=== PATIENT | male | born 1955 | race American Indian/Alaskan Native ===

== ENCOUNTER 2020-11-09 12:06 | Observation (INO) | payer MEDICAID ==
--- NOTE | 2020-11-09 15:00 | XRay Report ---
CHEST 2 VIEWS INDICATION / CLINICAL INFORMATION: Chest Pain. COMPARISON: None available. FINDINGS: SUPPORT DEVICES: None. HEART / MEDIASTINUM: No significant abnormality. LUNGS / PLEURA: No significant pulmonary or pleural abnormality. No pneumothorax. ADDITIONAL FINDINGS: No significant additional findings. IMPRESSION: 1. No acute findings. Signer Name: Greg De Jesus MD Signed: 11/09/2020 2:55 PM Workstation Name: [id number]
[2020-11-09 15:21] LABS: Basophils % (Auto) 0.9 % (0.0-1.8); Eosinophils # (Auto) 0.1 K/mm3 (0.0-0.4); Eosinophils % (Auto) 1.9 % (0.0-4.3); Hematocrit 42.8 % (35.5-45.6); Hemoglobin 14.7 gm/dl (11.8-15.2); Lymphocytes % (Auto) 41.3 % (13.4-35.0); Mean Corpuscular HGB Conc 34 % (32-34); Mean Corpuscular Volume 87 fl (84-94); Monocytes # (Auto) 0.3 K/mm3 (0.0-0.8); Monocytes % (Auto) 7.2 % (0.0-7.3); Platelet Count 221 K/mm3 (140-440); Red Blood Count 4.94 M/mm3 (3.65-5.03); Red Cell Distribution Width 13.8 % (13.2-15.2)
[2020-11-09 15:28] LABS: INR 0.96 (0.87-1.13); Partial Thromboplastin Time 24.1 Sec. (24.2-36.6)
[2020-11-09 15:35] LABS: Alanine Aminotransferase 31 units/L (7-56); BUN/Creatinine Ratio 11; Blood Urea Nitrogen 10 mg/dL (9-20); Calcium 10.1 mg/dL (8.4-10.2); Hemolysis Index 6
[2020-11-09] MEDS ORDERED: ASPIRIN 81 MG TAB CHEW PO ONE (16:38)
--- NOTE | 2020-11-09 16:38 | Emergency Department Report ---
ED Chest Pain HPI - General Chief Complaint: Chest Pain Stated Complaint: CHEST PAIN Time Seen by Provider: 11/09/20 16:22 Source: patient Mode of arrival: Ambulatory Limitations: No Limitations - History of Present Illness Initial Comments: 65-year-old with history of hypertension mental retardation presents complaining of intermittent chest pain since last night. He states that he has been experiencing intermittent episodes of mid substernal chest pain which he describes as pressure-like. It lasts for a few minutes and then resolves spontaneously. He states that when he does have the pain it radiates to his right arm and shoulder. He also has had a mild cough for the past 2 days. He takes aspirin 81 mg but has no cardiac history. He is vaccinated against the novel coronavirus. He has not tried anything for his symptoms. He has not ex perienced this before. He denies any associated headache, vision change, fever, shortness of breath, abdominal pain, nausea/vomiting, palpitation, syncope, or any other complaints. The patient's sister was at the bedside and helped provide the history. - Related Data Home Medications Medication Instructions Recorded Confirmed Last Taken Aspirin [Aspirin BABY CHEW TAB] 81 mg PO QDAY 11/09/20 11/09/20 Unknown Losartan [Cozaar] 50 mg PO QDAY 11/09/20 11/09/20 Unknown Metoprolol [Lopressor] 25 mg PO BID 11/09/20 11/09/20 Unknown Multivit,Calc,Min/FA/K1/Lycop 1 each PO QDAY 11/09/20 11/09/20 Unknown [One-A-Day Men's Complete Tab] Simvastatin 20 mg PO QHS 11/09/20 11/09/20 Unknown Sucralfate [Carafate] 1 gm PO ACHS 11/09/20 11/09/20 Unknown Allergies Allergy/AdvReac Type Severity Reaction Status Date / Time No Known Allergies Allergy Unverified 11/09/20 12:17 Heart Score - HEART Score History: Highly suspicious EKG: Non-specific Age: 45-65 Risk factors: 1-2 risk factors Troponin: < normal limit HEART Score: 5 - EKG Read Time Time EKG Completed: 12:24 EKG Read Time: 12:32 ED Review of Systems ROS: Stated complaint: CHEST PAIN Other details as noted in HPI Constitutional: denies: chills, fever Eyes: denies: eye pain, vision change ENT: denies: throat pain, congestion Respiratory: cough. denies: shortness of breath Cardiovascular: chest pain. denies: palpitations, syncope Gastrointestinal: denies: abdominal pain, nausea, vomiting Genitourinary: denies: dysuria, frequency Musculoskeletal: denies: back pain, joint swelling Skin: denies: rash Neurological: denies: headache, weakness, numbness ED Past Medical Hx - Past Medical History Previous Medical History?: Yes Hx Hypertension: Yes Additional medical history: high chol; mentally challenged - Surgical History Past Surgical History?: No - Medications Home Medications: Home Medications Medication Instructions Recorded Confirmed Last Taken Type Aspirin [Aspirin BABY CHEW TAB] 81 mg PO QDAY 11/09/20 11/09/20 Unknown History Losartan [Cozaar] 50 mg PO QDAY 11/09/20 11/09/20 Unknown History Metoprolol [Lopressor] 25 mg PO BID 11/09/20 11/09/20 Unknown History Multivit,Calc,Min/FA/K1/Lycop 1 each PO QDAY 11/09/20 11/09/20 Unknown History [One-A-Day Men's Complete Tab] Simvastatin 20 mg PO QHS 11/09/20 11/09/20 Unknown History Sucralfate [Carafate] 1 gm PO ACHS 11/09/20 11/09/20 Unknown History ED Physical Exam - General Limitations: No Limitations - Other Other exam information: GENERAL: Well developed and well nourished. No acute distress HEENT: Normocephalic. No obvious signs of trauma. Moist mucous membranes. EYES: Extraocular movements are intact. Pupils are equal round and reactive to light bilaterally NECK: Supple. Trachea is midline. LUNGS: Nonlabored breathing. Equal chest rise bilaterally. Clear to auscultation bilaterally. HEART/CARDIOVASCULAR: Regular rate and rhythm. No murmurs or rubs. VASCULAR: Cap refill < 2 seconds ABDOMEN: Abdomen is soft and nondistended. There is no significant tenderness, guarding or rebound. SKIN: Skin is warm and dry NEURO: Patient is awake, alert, and oriented. flue cleaner II-XII grossly intact. No focal deficits. Normal motor and sensory exam throughout. MUSCULOSKELETAL: No obvious deformities. No significant tenderness. ED Course Vital Signs 11/09/20 11/09/20 11/09/20 12:19 16:34 16:46 Temperature 99.0 F Pulse Rate 65 77 72 Respiratory 16 15 15 Rate Blood Pressure 167/80 163/87 O2 Sat by Pulse 99 99 100 Oximetry 11/09/20 17:30 Temperature Pulse Rate 64 Respiratory 14 Rate Blood Pressure 154/84 O2 Sat by Pulse 99 Oximetry MARIBELL score - Maribell Score Age > 65: (0) No Aspirin use within the Past 7 Days: (1) Yes 3 or more CAD Risk Factors: (0) No 2 or more Angina events in past 24 hrs: (1) Yes Known CAD with more than 50% Stenosis: (0) No Elevated Cardiac Markers: (0) No ST Deviation Greater than 0.5mm: (0) No MARIBELL Score: 2 ED Medical Decision Making - Lab Data Result diagrams: 11/09/20 14:58 11/09/20 14:58 Lab Results 11/09/20 11/09/20 11/09/20 Range/Units 14:58 14:58 14:58 WBC 4.8 (4.5-11.0) K/mm3 RBC 4.94 (3.65-5.03) M/mm3 Hgb 14.7 (11.8-15.2) gm/dl Hct 42.8 (35.5-45.6) % MCV 87 (84-94) fl MCH 30 (28-32) pg MCHC 34 (32-34) % RDW 13.8 (13.2-15.2) % Plt Count 221 (140-440) K/mm3 Lymph % (Auto) 41.3 H (13.4-35.0) % [place] % (Auto) 7.2 (0.0-7.3) % Eos % (Auto) 1.9 (0.0-4.3) % Baso % (Auto) 0.9 (0.0-1.8) % Lymph # (Auto) 2.0 (1.2-5.4) K/mm3 [place] # (Auto) 0.3 (0.0-0.8) K/mm3 Eos # (Auto) 0.1 (0.0-0.4) K/mm3 Baso # (Auto) 0.0 (0.0-0.1) K/mm3 Seg Neutrophils % 48.7 (40.0-70.0) % Seg Neutrophils # 2.3 (1.8-7.7) K/mm3 PT 13.3 (12.2-14.9) Sec. INR 0.96 (0.87-1.13) APTT 24.1 L (24.2-36.6) Sec. Sodium 143 (137-145) mmol/L Potassium 4.8 (3.6-5.0) mmol/L Chloride 103.8 (98-107) mmol/L Carbon Dioxide 28 (22-30) mmol/L Anion Gap 16 mmol/L BUN 10 (9-20) mg/dL Creatinine 0.9 (0.8-1.3) mg/dL Estimated GFR > 60 ml/min BUN/Creatinine Ratio 11 % Glucose 108 H (75-100) mg/dL Calcium 10.1 (8.4-10.2) mg/dL Total Bilirubin 0.40 (0.1-1.2) mg/dL AST 26 (5-40) units/L ALT 31 (7-56) units/L Alkaline Phosphatase 98 (35-129) units/L Troponin T < 0.010 (0.00-0.029) ng/mL Total Protein 8.6 H (6.3-8.2) g/dL Albumin 5.0 (3.9-5) g/dL Albumin/Globulin Ratio 1.4 % Lipase 69 H (13-60) units/L - EKG Data -: EKG Interpreted by Wy - EKG Data 11/09/20 18:55 Normal sinus rhythm. Normal axis. Intraventricular conduction delay. Otherwise normal intervals. No ectopy. No significant ST segment or T wave abnormalities. - Radiology Data CHEST 2 VIEWS INDICATION / CLINICAL INFORMATION: Chest Pain. COMPARISON: None available. FINDINGS: SUPPORT DEVICES: None. HEART / MEDIASTINUM: No significant abnormality. LUNGS / PLEURA: No significant pulmonary or pleural abnormality. No pneumothorax. ADDITIONAL FINDINGS: No significant additional findings. IMPRESSION: 1. No acute findings. Signer Name: Greg De Jesus MD Signed: 11/09/2020 1:55 PM Workstation Name: [id number] - Medical Decision Making 65-year-old male with history of hypertension, hyperlipidemia, and mental retardation presenting with intermittent mid substernal chest pain radiating to the right shoulder since last night. He also has mild cough. No cardiac history. He is vaccinated against the coronavirus. He is afebrile and with normal vital signs with the exception of elevated blood pressure. The patient's heart score is 5. Labs were drawn in triage and there is no significant leukocytosis or anemia. There are no significant electrolyte abnormalities and the patient's kidney function is normal. His initial troponin value is negative. Chest x-ray is negative. At this time he is currently chest pain- free. I discussed with the patient and his sister the fact that given the patient's age and risk factors and the nature of his symptoms which suggest a cardiac etiology, my recommendation at this point would be for admission to the hospital for trending of cardiac enzymes to determine whether there is an acute coronary syndrome. Both the patient and his sister expressed understanding and agreement with the plan for admission. The patient was administered aspirin. I spoke with Dr. Joshua regarding the case and he accepts the patient for admission and will assume care. Critical care attestation.: If time is entered above; I have spent that time in minutes in the direct care of this critically ill patient, excluding procedure time. ED Disposition Clinical Impression: Angina at rest Disposition: DC-09 OP ADMIT IP TO THIS HOSP Is pt being admited?: Yes Condition: Stable
[2020-11-09] MEDS ORDERED: SODIUM CHLORIDE 0.9% 1000 ML 1,000 ML IV SCH (23:45)
[2020-11-09] MEDS ORDERED: HYDROmorphone 1 MG/1 ML INJ IV PRN (23:46)
[2020-11-09] MEDS ORDERED: ONDANSETRON 4 MG/2 ML INJ IV PRN (23:46)
[2020-11-09] MEDS ORDERED: ACETAMINOPHEN 325 MG TAB PO PRN (23:46)
[2020-11-09] MEDS ORDERED: oxyCODONE /ACETAMINOPHEN 5-325MG TAB PO PRN (23:46)
--- NOTE | 2020-11-09 23:51 | History and Physical Report ---
History of Present Illness Date of examination: 11/09/20 Date of admission: 11/09/20 17:08 Chief complaint: Chest pain since a.m. History of present illness: 65-year-old male with history of hypertension and hyperlipidemia and GERD comes in for substernal chest pain since last night. Chest pain is intermittent. Chest pain is about 5 on a scale of 1-10. No diaphoresis no shortness of breath no radiation. No exacerbating or precipitating factors. No history of coronary artery disease. Patient is vaccinated against Covid. Has mild cough. Heart Score - HEART Score History: Highly suspicious EKG: Non-specific Age: 45-65 Risk factors: 1-2 risk factors Troponin: < normal limit HEART Score: 5 - EKG Read Time Time EKG Completed: 12:24 EKG Read Time: 12:32 - Past Medical History Previous Medical History?: Yes --Hypertension: Yes --Additional medical history: high chol; mentally challenged - Surgical History Past Surgical History?: No Family history Htn Social history does not smoke No alcohol or drugs - Medications Home Medications: Home Medications Medication Instructions Recorded Confirmed Last Taken Type Aspirin [Aspirin BABY CHEW TAB] 81 mg PO QDAY 11/09/20 11/09/20 Unknown History Losartan [Cozaar] 50 mg PO QDAY 11/09/20 11/09/20 Unknown History Metoprolol [Lopressor] 25 mg PO BID 11/09/20 11/09/20 Unknown History Multivit,Calc,Min/FA/K1/Lycop 1 each PO QDAY 11/09/20 11/09/20 Unknown History [One-A-Day Men's Complete Tab] Simvastatin 20 mg PO QHS 11/09/20 11/09/20 Unknown History Sucralfate [Carafate] 1 gm PO ACHS 11/09/20 11/09/20 Unknown History Review of Systems ROS: Stated complaint: CHEST PAIN Other details as noted in HPI Constitutional: denies: chills, fever Eyes: denies: eye pain, vision change ENT: denies: throat pain, congestion Respiratory: cough. denies: shortness of breath Cardiovascular: chest pain. denies: palpitations, syncope Gastrointestinal: denies: abdominal pain, nausea, vomiting Genitourinary: denies: dysuria, frequency Musculoskeletal: denies: back pain, joint swelling Skin: denies: rash Neurological: denies: headache, weakness, numbness Medications and Allergies Allergies Allergy/AdvReac Type Severity Reaction Status Date / Time No Known Allergies Allergy Unverified 11/09/20 12:17 Home Medications Medication Instructions Recorded Confirmed Last Taken Type Aspirin [Aspirin BABY CHEW TAB] 81 mg PO QDAY 11/09/20 11/09/20 Unknown History Losartan [Cozaar] 50 mg PO QDAY 11/09/20 11/09/20 Unknown History Metoprolol [Lopressor] 25 mg PO BID 11/09/20 11/09/20 Unknown History Multivit,Calc,Min/FA/K1/Lycop 1 each PO QDAY 11/09/20 11/09/20 Unknown History [One-A-Day Men's Complete Tab] Simvastatin 20 mg PO QHS 11/09/20 11/09/20 Unknown History Sucralfate [Carafate] 1 gm PO ACHS 11/09/20 11/09/20 Unknown History Exam - Constitutional Vitals: Temp Pulse Resp BP Pulse Ox 99.0 F 70 15 137/84 96 11/09/20 12:19 11/09/20 21:00 11/09/20 21:00 11/09/20 21:00 11/09/20 21:00 General appearance: Present: no acute distress, well-nourished - EENT Eyes: Present: PERRL ENT: hearing intact, clear oral mucosa - Neck Neck: Present: supple, normal ROM - Respiratory Respiratory effort: normal Respiratory: bilateral: CTA - Cardiovascular Heart rate: 78 Rhythm: regular Heart Sounds: Present: S1 & S2. Absent: rub, click - Extremities Extremities: no ischemia, pulses intact, pulses symmetrical, No edema Peripheral Pulses: within normal limits - Abdominal General gastrointestinal: Present: soft, non-tender, non-distended, normal bowel sounds Male genitourinary: Present: normal - Integumentary Integumentary: Present: clear, warm, dry - Musculoskeletal Musculoskeletal: gait normal, strength equal bilaterally - Psychiatric Psychiatric: appropriate mood/affect, intact judgment & insight - Neurologic Neurologic: CNII-XII intact, moves all extremities - Allied Health Allied health notes reviewed: nursing, case management HEART Score - HEART Score EKG: Non-specific Age: 45-65 Risk factors: 1-2 risk factors Troponin: Troponin T < 0.010 ng/mL (0.00-0.029) 11/09/20 21:30 Troponin: < normal limit Results - Labs CBC & Chem 7: 11/10/20 05:23 11/10/20 05:23 Labs: Laboratory Last Values WBC 4.8 K/mm3 (4.5-11.0) 11/09/20 14:58 RBC 4.94 M/mm3 (3.65-5.03) 11/09/20 14:58 Hgb 14.7 gm/dl (11.8-15.2) 11/09/20 14:58 Hct 42.8 % (35.5-45.6) 11/09/20 14:58 MCV 87 fl (84-94) 11/09/20 14:58 MCH 30 pg (28-32) 11/09/20 14:58 MCHC 34 % (32-34) 11/09/20 14:58 RDW 13.8 % (13.2-15.2) 11/09/20 14:58 Plt Count 221 K/mm3 (140-440) 11/09/20 14:58 Lymph % (Auto) 41.3 % (13.4-35.0) H 11/09/20 14:58 [place] % (Auto) 7.2 % (0.0-7.3) 11/09/20 14:58 Eos % (Auto) 1.9 % (0.0-4.3) 11/09/20 14:58 Baso % (Auto) 0.9 % (0.0-1.8) 11/09/20 14:58 Lymph # (Auto) 2.0 K/mm3 (1.2-5.4) 11/09/20 14:58 [place] # (Auto) 0.3 K/mm3 (0.0-0.8) 11/09/20 14:58 Eos # (Auto) 0.1 K/mm3 (0.0-0.4) 11/09/20 14:58 Baso # (Auto) 0.0 K/mm3 (0.0-0.1) 11/09/20 14:58 Seg Neutrophils % 48.7 % (40.0-70.0) 11/09/20 14:58 Seg Neutrophils # 2.3 K/mm3 (1.8-7.7) 11/09/20 14:58 PT 13.3 Sec. (12.2-14.9) 11/09/20 14:58 INR 0.96 (0.87-1.13) 11/09/20 14:58 APTT 24.1 Sec. (24.2-36.6) L 11/09/20 14:58 Sodium 143 mmol/L (137-145) 11/09/20 14:58 Potassium 4.8 mmol/L (3.6-5.0) 11/09/20 14:58 Chloride 103.8 mmol/L (98-107) 11/09/20 14:58 Carbon Dioxide 28 mmol/L (22-30) 11/09/20 14:58 Anion Gap 16 mmol/L 11/09/20 14:58 BUN 10 mg/dL (9-20) 11/09/20 14:58 Creatinine 0.9 mg/dL (0.8-1.3) 11/09/20 14:58 Estimated GFR > 60 ml/min 11/09/20 14:58 BUN/Creatinine Ratio 11 % 11/09/20 14:58 Glucose 108 mg/dL (75-100) H 11/09/20 14:58 Calcium 10.1 mg/dL (8.4-10.2) 11/09/20 14:58 Total Bilirubin 0.40 mg/dL (0.1-1.2) 11/09/20 14:58 AST 26 units/L (5-40) 11/09/20 14:58 ALT 31 units/L (7-56) 11/09/20 14:58 Alkaline Phosphatase 98 units/L (35-129) 11/09/20 14:58 Troponin T < 0.010 ng/mL (0.00-0.029) 11/09/20 21:30 Total Protein 8.6 g/dL (6.3-8.2) H 11/09/20 14:58 Albumin 5.0 g/dL (3.9-5) 11/09/20 14:58 Albumin/Globulin Ratio 1.4 % 11/09/20 14:58 Lipase 69 units/L (13-60) H 11/09/20 14:58 Short CBC 11/09/20 11/10/20 Range/Units 14:58 05:23 WBC 4.8 5.1 (4.5-11.0) K/mm3 Hgb 14.7 13.4 (11.8-15.2) gm/dl Hct 42.8 38.2 (35.5-45.6) % Plt Count 221 200 (140-440) K/mm3 BMP 11/09/20 11/10/20 14:58 05:23 Sodium 143 141 Potassium 4.8 3.9 Chloride 103.8 103.0 Carbon Dioxide 28 30 BUN 10 11 Creatinine 0.9 0.9 Glucose 108 H 108 H Calcium 10.1 9.5 Cardiac Enzymes 11/09/20 11/09/20 11/10/20 Range/Units 14:58 21:30 00:19 Troponin T < 0.010 < 0.010 < 0.010 (0.00-0.029) ng/mL 11/10/20 Range/Units 05:23 Troponin T < 0.010 (0.00-0.029) ng/mL Liver Function 11/09/20 11/10/20 Range/Units 14:58 05:23 Total Bilirubin 0.40 0.30 (0.1-1.2) mg/dL AST 26 23 (5-40) units/L ALT 31 25 (7-56) units/L Alkaline Phosphatase 98 83 (35-129) units/L Albumin 5.0 4.5 (3.9-5) g/dL - Imaging and Cardiology EKG: report reviewed (Sinus rhythm no acute ST-T wave changes) Assessment and Plan Advance Directives: Yes (Full code) VTE prophylaxis?: Chemical Plan of care discussed with patient/family: Yes - Patient Problems (1) Acute coronary syndrome Current Visit: Yes Status: Acute Plan to address problem: Chest pain work-up Serial troponins Lexiscan in the morning Differential diagnosis of costochondritis Patient has chest wall tenderness (2) Costochondritis, acute Current Visit: Yes Status: Acute Plan to address problem: Patient has chest wall tenderness MSAs for 7 to 10 days Meloxicam 7.5 mg once a day requested (3) Hypertension Current Visit: Yes Status: Chronic Qualifiers: Hypertension type: primary hypertension Qualified Code(s): I10 - Essential (primary) hypertension Plan to address problem: Continue antihypertensives and adjust medications (4) GERD (gastroesophageal reflux disease) Current Visit: Yes Status: Chronic Qualifiers: Esophagitis presence: without esophagitis Qualified Code(s): K21.9 - Gastro-esophageal reflux disease without esophagitis Plan to address problem: Continue sucralfate and PPIs (5) DVT prophylaxis Current Visit: Yes Status: Acute Plan to address problem: On heparin and GI prophylaxis
[2020-11-10] MEDS: HEPARIN 5,000 UNIT/1 ML VIAL SUB-Q SCH ×2 (01:46→12:37)
[2020-11-10] MEDS: METOPROLOL TARTRATE 25 MG TAB PO SCH ×2 (02:46→12:37)
[2020-11-10] MEDS: FAMOTIDINE 20 MG/2 ML INJ IV SCH ×2 (05:46→12:38)
[2020-11-10 05:47] LABS: Basophils % (Auto) 0.5 % (0.0-1.8); Eosinophils # (Auto) 0.2 K/mm3 (0.0-0.4); Eosinophils % (Auto) 4.4 % (0.0-4.3); Hematocrit 38.2 % (35.5-45.6); Hemoglobin 13.4 gm/dl (11.8-15.2); Lymphocytes # (Auto) 2.2 K/mm3 (1.2-5.4); Lymphocytes % (Auto) 43.4 % (13.4-35.0); Mean Corpuscular HGB Conc 35 % (32-34); Mean Corpuscular Volume 86 fl (84-94); Monocytes # (Auto) 0.5 K/mm3 (0.0-0.8); Monocytes % (Auto) 8.9 % (0.0-7.3); Platelet Count 200 K/mm3 (140-440); Red Blood Count 4.46 M/mm3 (3.65-5.03); Red Cell Distribution Width 13.9 % (13.2-15.2)
[2020-11-10 05:51] LABS: Alanine Aminotransferase 25 units/L (7-56); Albumin 4.5 g/dL (3.9-5); BUN/Creatinine Ratio 12; Blood Urea Nitrogen 11 mg/dL (9-20); Calcium 9.5 mg/dL (8.4-10.2); Hemolysis Index 6
[2020-11-10] MEDS ORDERED: REGADENOSON 0.4 MG/5 ML INJ IV ONE ×2 (07:15)
[2020-11-10] MEDS ORDERED: MULTIVITAMINS,THER W-MINERALS TAB PO SCH (10:00)
[2020-11-10] MEDS ORDERED: ASPIRIN 81 MG TAB CHEW PO SCH (10:00)
[2020-11-10] MEDS ORDERED: MELOXICAM 7.5 MG TAB PO SCH (10:00)
[2020-11-10] MEDS ORDERED: LOSARTAN 50 MG TAB PO SCH (10:00)
--- NOTE | 2020-11-10 11:43 | Discharge Summary ---
Providers - Providers Date of Admission: 11/09/20 17:08 Date of discharge: 11/10/20 Attending physician: KEVIN BETH MD Primary care physician: DAISY ESQUEDA Hospitalization Reason for admission: Chest pain Condition: Stable Hospital course: History of present illness: 65-year-old male with history of hypertension and hyperlipidemia and GERD comes in for substernal chest pain since last night. Chest pain is intermittent. Chest pain is about 5 on a scale of 1-10. No diaphoresis no shortness of breath no radiation. No exacerbating or precipitating factors. No history of coronary artery disease. Patient is vaccinated against Covid. Has mild cough. Hospital course I have seen and evaluated the patient this morning and patient did not have any chest pain. Patient said he is feeling well. Exercise stress test was done and was negative and patient discharged home. Patient was hemodynamically stable at the time of discharge. Labs were unremarkable. Disposition: DC- TO HOME OR SELFCARE Final Discharge Diagnosis (Prints w/discharge instructions): Chest pain, likely costochondritis. Hypertension. Hyperlipidemia Time spent for discharge: 25 minutes - Discharge Diagnoses (1) Angina at rest Status: Acute (2) Costochondritis, acute Status: Acute (3) GERD (gastroesophageal reflux disease) Status: Chronic Qualifiers: Esophagitis presence: without esophagitis Qualified Code(s): K21.9 - Gastro-esophageal reflux disease without esophagitis (4) Hypertension Status: Chronic Qualifiers: Hypertension type: primary hypertension Qualified Code(s): I10 - Essential (primary) hypertension Core Measure Documentation - Palliative Care Palliative Care/ Comfort Measures: Not Applicable - Core Measures Any of the following diagnoses?: none Exam - Physical Exam Narrative exam: Not in cardiopulmonary distress. The patient appeared well nourished and normally developed. Vital signs as documented. Head exam is unremarkable. No scleral icterus . Neck is without jugular venous distension, thyromegaly, or carotid bruits. Lungs are clear to auscultation. Cardiac exam reveals regular rate and Rhythm. Abdominal exam reveals normal bowel sounds, nontender, no organomegaly. Extremities are nonedematous and both femoral and pedal pulses are normal. [employer]: Alert and oriented 3. No focal weakness. - Constitutional Vitals: Temp Pulse Resp BP Pulse Ox 98.2 F 70 18 147/85 98 11/10/20 07:20 11/10/20 03:08 11/10/20 07:20 11/10/20 07:20 11/10/20 03:08 Plan Activity: no restrictions Weight Bearing Status: Full Weight Bearing Diet: low salt Follow up with: DAISY ESQUEDA [Primary Care Provider] - 7 Days
[2020-11-10 11:52] VITALS: BP 145/78
[2020-11-10] MEDS: SUCRALFATE 1 GM TAB PO SCH ×2 (12:36→16:40)
--- NOTE | 2020-11-10 13:05 | Nuclear Medicine Report ---
APPROVED REPORT Exam: Nuclear Stress Test Indication: Chest pain BMI: 0 Stress Test Details Stress Test: Exercise stress testing was performed using a Ramez protocol. HR Resting HR: 66 bpm Max HR Achieved: 131 bpm Max Heart Rate (APMHR): 155 bpm Target HR (85% APMHR): 131 bpm % of APMHR: 84 Recovery HR: 79 bpm HR response to stress: Normal HR response to stress BP Resting BP: 144/86 mmHg Max BP: 172/98 mmHg Recovery BP: 141/77 mmHg BP response to stress: Normal blood pressure response to stress. ECG Resting ECG: Sinus Rhythm Stress ECG: Sinus Tachycardia ST Change: None Arrhythmia: None Recovery ECG: Sinus Rhythm Recovery ST Change: None Recovery Arrhythmia: None Clinical Reason for Termination: Fatigue Stress Symptoms: None Exercise duration: 6 min 17 sec Exercise capacity: 7.1 METs Stress ECG Conclusion No chest pain with exercise to 7 METS of Ramez protocol, no ST changes of ischemia, no significant dysrhythmias. Myocardial perfusion images are pending for final test interpretation. NM EXAM: Myocardial Perfusion REST/STRESS Imaging Protocol: Rest Tc-99m/Stress Tc-99m 1 day Resting Data Rest SPECT myocardial perfusion imaging was performed in supine position 45 minutes following the intravenous injection of 10 mCi of Tc-99m Myoview. Time of rest injection: 0700 Exercise Stress At peak stress, the patient was injected intravenously with 28mCi of Tc-99m Tetrofosmin. Time of stress injection: 1100 Gated Stress SPECT was performed 30 minutes after stress injection. Study Data TID = 0.84. Perfusion Nuclear Conclusion ECG Findings: negative for ischemia Clinical Findings: negative for ischemia Nuclear Findings: negative for ischemia Exercise Capacity: normal Left Ventricular Function: normal Risk Study: low Normal exercise myocardial perfusion study. Normal left ventricular systolic function, ejection fraction 59% on gated SPECT. Conclusion No chest pain with exercise to 7 METS of Ramez protocol, no ST changes of ischemia, no significant dysrhythmias. Myocardial perfusion images are pending for final test interpretation.
[2020-11-10] MEDS ORDERED: PRAVASTATIN 40 MG TAB PO SCH (22:00)
--- NOTE | 2020-11-11 10:09 | Electrocardiograph Report ---
[facility] Test Date: 2020-11-09 Test Time: 12:27:05 Pat Name: JASON GUERRA Department: Room: A465 1 Gender: M Communication Spec: LIZZ : 1955 Requested By: KEVIN BETH Order Number: [id number] Reading MD: Noam Stone Measurements Intervals [place] Rate: 69 P: 81 CA: 211 QRS: 69 QRSD: 103 T: 27 QT: 380 QTc: 406 Interpretive Statements Sinus rhythm Borderline ST elevation, lateral leads No previous ECG available for comparison Electronically Signed On 11-11-2020 10:08:49 EDT by Noam Stone
== END 2020-11-10 17:01 | disposition home or self-care (01) ==
LOC: ED 12:06 → 4A 17:08
PROVIDERS: ADMIT Internal Medicine; ATTEND Internal Medicine
DX: I24.9 Acute ischemic heart disease, unspecified (principal); M94.0 Chondrocostal junction syndrome [Tietze]; I10 Essential (primary) hypertension; K21.9 Gastro-esophageal reflux disease without esophagitis; E78.00 Pure hypercholesterolemia, unspecified; Z79.82 Long term (current) use of aspirin
CPT/HCPCS: 36415; 71046; 78452; 80053; 83036; 83690; 84484; 85025; 85610; 85730; 93005; 93017; 96361; 96372; 96374; 96376; 99285; A9502; G0378; J1644; J7030; J2785